=== PATIENT | female | born 1955 | race African-American/Black ===

== ENCOUNTER 2017-02-18 17:22 | Emergency (ER) | payer OTHER ==
[~2017-02-18] VITALS: Ht 162.6 cm; Wt 50.0 kg
[~2017-02-18 17:22] MED LIST: IOHEXOL-300 100 ML BOTTLE ONE; SODIUM CHLORIDE 0.9% 10ML VIAL ONE
[2017-02-18 19:14] LABS: BASOPHILS % 1.3 % (0.0-2.0); EOSINOPHILS % 0.7 % (0.0-5.0); HEMATOCRIT. 38.3 % (36.0-48.0); HEMOGLOBIN. 12.6 g/dL (12.0-16.0); LYMPHOCYTES % 24.9 % (20.0-50.0); MEAN CORPUSCULAR VOLUME 85.1 fL (81.0-99.0); MEAN PLATELET VOLUME 8.9 fl (7.4-10.4); MONOCYTES % 8.4 % (2.0-8.0); NEUTROPHILS % 64.7 % (40.0-76.0); PLATELET 156 x1000/uL (130-400)
[2017-02-18 19:21] LABS: INR 1.1; PROTHROMBIN TIME 11.1 sec (9.4-11.6)
[2017-02-18 19:26] LABS: CARBON DIOXIDE 30 mEq/L (21-32); CHLORIDE 105 mEq/L (98-107)
[2017-02-18 19:30] LABS: CREATINE KINASE 149 IU/L (26-192)
[2017-02-18 19:31] LABS: TROPONIN I < 0.02 ng/mL (0.00-0.04)
[2017-02-18] MEDS ORDERED: MORPHINE SULFATE 4 MG/ML CPJ (NOT FOR IM USE) IV ONE (21:45)
[2017-02-18] MEDS ORDERED: HYDRALAZINE 20MG/ML VIAL IV ONE (21:45)
[2017-02-18] MEDS ORDERED: KETOROLAC 30MG/ML VIAL IV ONE (23:45)
[2017-02-19 01:03] VITALS: BP 153/93
== END 2017-02-19 01:14 | disposition home or self-care (01) ==
LOC: ER 17:36
DX: S20.219A Contusion of unspecified front wall of thorax, initial encounter (principal); I10 Essential (primary) hypertension; R10.13 Epigastric pain; V49.88XA Car occupant (driver) (passenger) injured in other specified transport accidents, initial encounter; Y93.89 Activity, other specified; Y92.89 Other specified places as the place of occurrence of the external cause; Y99.8 Other external cause status
CPT/HCPCS: 36415; 71010; 71260; 80053; 82550; 84484; 85025; 85610; 93005; 96374; 96375; 99285; A4216; J0360; J2270; Q9967; Z7610